=== PATIENT | male | born 1970 | race Caucasian/White ===

== ENCOUNTER 2018-10-31 10:54 | Emergency (ER) | payer BC ==
[2018-10-31 12:04] LABS: Rapid Strep Molecular Negative (Negative)
[2018-10-31 12:30] VITALS: BP 128/80
--- NOTE | 2018-10-31 14:11 | ED ---
Respiratory - HPI Summary HPI Summary: Patient is a 48-year-old otherwise healthy male smoker presenting to the ED with cough 3 days and for pain. He denies any fevers, sweats, chills. He denies abdominal pain, nausea, vomiting, diarrhea, constipation. He denies any difficulty swallowing or pain with swallowing. Denies any rhinorrhea or ear pain. He states he has been feeling otherwise well, but was concerned over a worsening infection and wanted to get checked out. He has been taking ibuprofen [id number] without other medications. - History of Current Complaint Chief Complaint: EDGeneral Stated Complaint: COLD SYMPTOMS/SWOLLEN GLANDS/DIFFICULTY SWALLOWING Time Seen by Provider: 10/31/18 11:06 Hx Obtained From: Patient Onset/Duration: Sudden Onset Timing: Constant Initial Severity: Mild Current Severity: Mild Pain Intensity: 6 Character: Cough (Nonproductive) Sputum Amount: Scant Aggravating Factor(s): URI Alleviating Factor(s): Nothing Associated Signs and Symptoms: Negative - Risk Factors Status Asthmaticus Risk Factors: Negative Pulmonary Embolism Risk Factors: Negative Cardiac Risk Factors: Negative Pseudomonas Risk Factors: Negative Tuberculosis Risk Factors: Negative - Allergy/Home Medications Allergies/Adverse Reactions: Allergies Allergy/AdvReac Type Severity Reaction Status Date / Time No Known Allergies Allergy Verified 04/26/13 08:45 Home Medications: Home Medications Ibuprofen TAB* [Advil TAB*] 600 mg PO Q6H PRN 10/31/18 [History Confirmed ] PMH/Surg Hx/FS Hx/Imm Hx Previously Healthy: Yes Endocrine/Hematology History: Denies: Hx Diabetes, Hx Thyroid Disease Cardiovascular History: Denies: Hx Hypertension Respiratory History: Denies: Hx Asthma, Hx Chronic Obstructive Pulmonary Disease (COPD) GI History: Denies: Hx Ulcer History: Denies: Hx Dialysis, Hx Renal Disease - Surgical History Surgery Procedure, Year, and Place: Deviated septum, Left leg growth plate scraping, hearnia repair age 3. - Immunization History Hx Pertussis Vaccination: No Immunizations Up to Date: Yes Infectious Disease History: No Infectious Disease History: Denies: Hx Hepatitis, Hx Human Immunodeficiency Virus (HIV), Traveled Outside the [place] in Last 30 Days - Social History Occupation: Employed Full-time Lives: With Family Alcohol Use: Occasionally Hx Substance Use: No Substance Use Type: Reports: None Hx Tobacco Use: Yes Smoking Status (MU): Heavy Every Day Tobacco Smoker Review of Systems Negative: Fever, Chills, Fatigue, Skin Diaphoresis Positive: Sore Throat. Negative: Dental Pain Negative: Palpitations, Chest Pain Positive: Cough Negative: Abdominal Pain, Vomiting, Diarrhea, Nausea Positive: see HPI. Negative: no symptoms reported Negative: Myalgia Neurological: Negative All Other Systems Reviewed And Are Negative: Yes Physical Exam Triage Information Reviewed: Yes Vital Signs On Initial Exam: Initial Vitals Temp Pulse Resp BP Pulse Ox 98.3 F 77 18 131/80 98 10/31/18 10:59 10/31/18 10:59 10/31/18 10:59 10/31/18 10:59 10/31/18 10:59 Vital Signs Reviewed: Yes Appearance: Positive: Well-Appearing, Well-Nourished Skin: Positive: Warm, Skin Color Reflects Adequate Perfusion Head/Face: Positive: Normal Head/Face Inspection Eyes: Positive: EOMI, Conjunctiva Clear ENT: Positive: Pharyngeal erythema. Negative: Nasal congestion, Nasal drainage , Tonsillar swelling, Tonsillar exudate, Dental tenderness, Sinus tenderness Neck: Positive: Supple, No Lymphadenopathy Respiratory/Lung Sounds: Positive: Clear to Auscultation, Breath Sounds Present Cardiovascular: Positive: RRR, Pulses are Symmetrical in both Upper and Lower Extremities Musculoskeletal: Positive: Strength/ROM Intact Neurological: Positive: Alert, Oriented to Person Place, Time, Speech Normal Psychiatric: Positive: Affect/Mood Appropriate AVPU Assessment: Alert Diagnostics - Vital Signs Vital Signs Temp Pulse Resp BP Pulse Ox 10/31/18 12:27 97.7 F 74 16 128/80 98 10/31/18 10:59 98.3 F 77 18 131/80 98 - Laboratory Lab Results: Lab Results 10/31/18 Range/Units 11:11 Group A Strep Rapid Negative (Negative) Lab Statement: Any lab studies that have been ordered have been reviewed, and results considered in the medical decision making process. Disposition - Course Course Of Treatment: During his course of treatment, the patient is evaluated for cough, congestion and throat pain 4 days. He states he feels the cough and congestion have improved, however throat pain remains. He denies any sick contacts. Denies any fevers, sweats, chills. He says one pack per day smoker. Strep swab obtained and is negative. Lung CTA,. Chest x-ray obtained which shows no active cardiopulmonary disease. Patient appears well, nontoxic and nondiaphoretic. He will be given prednisone once daily 5 days for cough and is encouraged Cepacol and Chloraseptic [id number]. He is also encouraged ibuprofen and Tylenol for any discomfort. He will be diagnosed with upper respiratory infection. He denies any other symptoms or concerns at this time. - Diagnoses Provider Diagnoses: Pharyngitis, Upper respiratory infection Discharge - Sign-Out/Discharge Documenting (check all that apply): Patient Departure Patient Received Moderate/Deep Sedation with Procedure: No - Discharge Plan Condition: Stable Disposition: HOME Prescriptions: predniSONE TAB* [Deltasone TAB*] 50 mg PO DAILY #5 tab MDD 1 Patient Education Materials: Upper Respiratory Infection (ED) Referrals: Elodia Song MD [Primary Care Provider] - Additional Instructions: Prednisone once daily 5 days Robitussin [id number] for relief of cough Cough drops Humidifier in the home may help until symptoms resolve Tylenol for any throat discomfort Cepacol and Chloraseptic tabs [id number] for throat pain - Billing Disposition and Condition Condition: STABLE Disposition: Home
== END 2018-10-31 12:27 | disposition home or self-care (01) ==
LOC: ED 10:54
DX: J02.9 Acute pharyngitis, unspecified (principal); J06.9 Acute upper respiratory infection, unspecified; F17.290 Nicotine dependence, other tobacco product, uncomplicated
CPT/HCPCS: 71046; 87651; 99282

== ENCOUNTER 2018-11-20 18:37 | Emergency (ER) | payer BC ==
[2018-11-20] MEDS ORDERED: NS 0.9% 1000 ML** 1,000 ML IV ONE (19:41)
[2018-11-20] MEDS ORDERED: Morphine 4 MG/ML VIAL (1 ml) 4 MG/ML VIAL IV ONE (19:41)
[2018-11-20] MEDS ORDERED: Pantoprazole IV* 40 MG IV ONE (19:42)
[2018-11-20] MEDS ORDERED: Ondansetron INJ* 2 MG/ML VIAL IV ONE (19:42)
[2018-11-20 19:43] LABS: ABS Basophils 0.1 10^3/ul (0-0.2); ABS Eosinophils 0.3 10^3/ul (0-0.6); ABS Lymphocytes 1.9 10^3/ul (1.0-4.8); ABS Monocytes 0.6 10^3/ul (0-0.8); ABS Neutrophils 6.6 10^3/ul (1.5-7.7); Eosinophil % 3.5 %; Hematocrit 46 % (42-52); Hemoglobin 16.3 g/dL (14.0-18.0); Lymphocyte % 20.4 %; Mean Corpuscular HGB Conc 35 g/dL (31-36); Mean Corpuscular Hemoglobin 31 pg (27-31); Mean Corpuscular Volume 89 fL (80-94); Mean Platelet Volume 7.2 fL (7.4-10.4); Nucleated Red Blood Cells % 0.1; Platelet Count 180 10^3/uL (150-450); Red Blood Count 5.25 10^6 /uL (4.18-5.48); Red Cell Distribution Width 13 % (10-15); White Blood Count 9.5 10^3/uL (3.5-10.8)
[2018-11-20 20:02] LABS: Albumin 4.2 g/dL (3.2-5.2); Albumin/Globulin Ratio 1.3 (1-3); BUN/Creatinine Ratio 10.8 (8-20); Calcium 9.4 mg/dL (8.6-10.3); EGFR African American 119.2 (>60); EGFR Non-African American 98.5 (>60); Globulin 3.2 g/dL (2-4); Potassium 3.6 mmol/L (3.5-5.0); Total Bilirubin 0.6 mg/dL (0.2-1.0); Total Protein 7.4 g/dL (6.4-8.9)
--- NOTE | 2018-11-20 20:03 | ED ---
GI/ HPI - HPI Summary HPI Summary: 48 year old male presents with epigastric pain past couple days. He states he normally has epigastric pain at night. He states that this pain is continuing for past day. He admits to nausea but no vomiting. No diarrhea or constipation. Denies any urinary symptoms. denies any chest pain or shortness of breath. States pain is radiates to the back. He takes ibuprofen for the pain and it normally works but did not this time. denies any alcohol use. - History of Current Complaint Chief Complaint: EDAbdPain Time Seen by Provider: 11/20/18 19:26 Stated Complaint: ABD PAINS PER PT Pain Intensity: 7 - Allergy/Home Medications Allergies/Adverse Reactions: Allergies Allergy/AdvReac Type Severity Reaction Status Date / Time No Known Allergies Allergy Verified 11/20/18 19:34 PMH/Surg Hx/FS Hx/Imm Hx Endocrine/Hematology History: Denies: Hx Diabetes, Hx Thyroid Disease Cardiovascular History: Denies: Hx Hypertension Respiratory History: Denies: Hx Asthma, Hx Chronic Obstructive Pulmonary Disease (COPD) GI History: Denies: Hx Ulcer History: Denies: Hx Dialysis, Hx Renal Disease - Surgical History Surgery Procedure, Year, and Place: Deviated septum, Left leg growth plate scraping, hearnia repair age 3. Infectious Disease History: No Infectious Disease History: Denies: Hx Hepatitis, Hx Human Immunodeficiency Virus (HIV), Traveled Outside the [place] in Last 30 Days - Family History Known Family History: Positive: Non-Contributory - Social History Alcohol Use: Occasionally Hx Substance Use: No Substance Use Type: Reports: None Hx Tobacco Use: Yes Smoking Status (MU): Heavy Every Day Tobacco Smoker Review of Systems Negative: Fever Negative: Chest Pain Negative: Shortness Of Breath Positive: Abdominal Pain, Nausea. Negative: Vomiting, Diarrhea All Other Systems Reviewed And Are Negative: Yes Physical Exam Triage Information Reviewed: Yes Vital Signs On Initial Exam: Initial Vitals Temp Pulse Resp BP Pulse Ox 98.2 F 68 14 149/95 99 11/20/18 18:38 11/20/18 18:38 11/20/18 18:38 11/20/18 18:38 11/20/18 18:38 Vital Signs Reviewed: Yes Appearance: Positive: Well-Appearing Skin: Positive: Warm, Dry Head/Face: Positive: Normal Head/Face Inspection Eyes: Positive: Normal, Conjunctiva Clear ENT: Positive: Pharynx normal Respiratory/Lung Sounds: Positive: Clear to Auscultation, Breath Sounds Present Cardiovascular: Positive: Normal, RRR Abdomen Description: Positive: Soft, Other: - tenderness epigastric region Bowel Sounds: Positive: Present Musculoskeletal: Positive: Normal Neurological: Positive: Normal Psychiatric: Positive: Normal Diagnostics - Vital Signs Vital Signs Temp Pulse Resp BP Pulse Ox 11/20/18 18:38 98.2 F 68 14 149/95 99 - Laboratory Lab Results: Lab Results 11/20/18 11/20/18 11/20/18 Range/Units 19:36 19:36 19:36 WBC 9.5 (3.5-10.8) 10^3/uL RBC 5.25 (4.18-5.48) 10^6 /uL Hgb 16.3 (14.0-18.0) g/dL Hct 46 (42-52) % MCV 89 (80-94) fL MCH 31 (27-31) pg MCHC 35 (31-36) g/dL RDW 13 (10-15) % Plt Count 180 (150-450) 10^3/uL MPV 7.2 L (7.4-10.4) fL Neut % (Auto) 68.7 % Lymph % (Auto) 20.4 % [place] % (Auto) 6.0 % Eos % (Auto) 3.5 % Baso % (Auto) 1.4 % Absolute Neuts (auto) 6.6 (1.5-7.7) 10^3/ul Absolute Lymphs (auto) 1.9 (1.0-4.8) 10^3/ul Absolute Monos (auto) 0.6 (0-0.8) 10^3/ul Absolute Eos (auto) 0.3 (0-0.6) 10^3/ul Absolute Basos (auto) 0.1 (0-0.2) 10^3/ul Absolute Nucleated RBC 0.0 10^3/ul Nucleated RBC % 0.1 Sodium 133 L (135-145) mmol/L Potassium 3.6 (3.5-5.0) mmol/L Chloride 100 L (101-111) mmol/L Carbon Dioxide 25 (22-32) mmol/L Anion Gap 8 (2-11) mmol/L BUN 9 (6-24) mg/dL Creatinine 0.83 (0.67-1.17) mg/dL Est GFR ( Amer) 119.2 (>60) Est GFR (Non-Af Amer) 98.5 (>60) BUN/Creatinine Ratio 10.8 (8-20) Glucose 96 (70-100) mg/dL Lactic Acid 0.8 (0.5-2.0) mmol/L Calcium 9.4 (8.6-10.3) mg/dL Total Bilirubin 0.60 (0.2-1.0) mg/dL AST 22 (13-39) U/L ALT 18 (7-52) U/L Alkaline Phosphatase 75 (34-104) U/L Troponin I Pending C-Reactive Protein 14.00 H (<8.01) mg/L Total Protein 7.4 (6.4-8.9) g/dL Albumin 4.2 (3.2-5.2) g/dL Globulin 3.2 (2-4) g/dL Albumin/Globulin Ratio 1.3 (1-3) Amylase 32 (29-103) U/L Lipase 14 (11.0-82.0) U/L Result Diagrams: 11/20/18 19:36 11/20/18 19:36 Lab Statement: Any lab studies that have been ordered have been reviewed, and results considered in the medical decision making process. - CT abd CT Interpretation Completed By: Radiologist Summary of CT Findings: IMPRESSION: No acute findings. Redemonstration of a horseshoe kidney. No acute bowel pathology. Re-Evaluation - Re-Evaluation First Eval Re-Evaluation Time: 22:43 Change: Improved Comment: feeling better GIGU Course/Dx - Course Course Of Treatment: 48 year old male presents with epigastric pain past couple days. He states he normally has epigastric pain at night. He states that this pain is continuing for past day. He admits to nausea but no vomiting. No diarrhea or constipation. Denies any urinary symptoms. denies any chest pain or shortness of breath. States pain is radiates to the back. He takes ibuprofen for the pain and it normally works but did not this time. denies any alcohol use. On exam tenderness epigastric. White blood count normal. CRP is elevated. Urine shows no infection. CT shows no acute findings. will treat with omeprazole. told follow up with GI if no improvement. patient understand and agrees with plan. - Diagnoses Differential Diagnoses - Male: Cholecystitis, Gastritis, Urinary Tract Infection Provider Diagnoses: Epigastric pain Discharge - Sign-Out/Discharge Documenting (check all that apply): Patient Departure Patient Received Moderate/Deep Sedation with Procedure: No - Discharge Plan Condition: Good Disposition: HOME Prescriptions: Omeprazole CAP (NF) [Prilosec CAP* 20 MG] 20 mg PO DAILY #14 cap.dr Patient Education Materials: Abdominal Pain (ED) Referrals: Mahin King DO [Doctor of Osteopathy] - Elodia Song MD [Primary Care Provider] - Additional Instructions: Take omeprazole once a day Avoid acidic foods take tyenlol as needed for pain every 6 hours Follow up with GI Return to ED if develop any new or worsening symptoms - Billing Disposition and Condition Condition: GOOD Disposition: Home
[2018-11-20] MEDS ORDERED: Iohexol 300* (CONTRAST) 10 ML SDV IV ONE (20:26)
[2018-11-20 20:59] LABS: Urine Appearance Clear; Urine Bilirubin Negative (Negative); Urine Blood Negative (Negative); Urine Color Straw; Urine Glucose Negative (Negative); Urine Ketones Negative (Negative); Urine Nitrite Negative (Negative); Urine Protein Negative (Negative); Urine Specific Gravity 1.006 (1.010-1.030); Urine Urobilinogen Negative (Negative)
[2018-11-20] MEDS ORDERED: Ketorolac INJ* 30 MG/ML 1 ML VIAL IV PUSH ONE (21:29)
[2018-11-20 22:45] VITALS: BP 132/91
== END 2018-11-20 22:56 | disposition home or self-care (01) ==
LOC: ED 18:37
DX: R10.13 Epigastric pain (principal); F17.210 Nicotine dependence, cigarettes, uncomplicated
CPT/HCPCS: 36415; 74177; 80053; 81003; 82150; 83605; 83690; 84484; 85025; 86140; 96361; 96374; 96375; 99283; J1885; J2270; J2405; Q9967